=== PATIENT | female | born 2000 | race Caucasian/White ===

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

== ENCOUNTER 2022-08-01 18:35 | Emergency (ER) | payer OTHER ==
[~2022-08-01] VITALS: Ht 162.6 cm; Wt 86.4 kg
[2022-08-01 18:39] VITALS: BP 132/87
[2022-08-01] MEDS ORDERED: BUPR-50 PO (18:39)
[2022-08-01] MEDS ORDERED: ESCI-8 PO (18:39)
[2022-08-01] MEDS ORDERED: SODIUM CHLORIDE 0.9% 1,000 ML IV ONE (19:15)
[2022-08-01] MEDS ORDERED: ONDANSETRON HCL 4 MG/2 ML VIAL IVP ONE (19:15)
[2022-08-01] MEDS ORDERED: ACETAMINOPHEN/CODEINE 300-30 MG TABLET PO ONE (19:15)
[2022-08-01] MEDS ORDERED: KETOROLAC TROMETHAMINE 30 MG/ML VIAL IVP ONE (19:15)
[2022-08-01 19:36] LABS: BASOPHILS % (AUTO) 0.5 % (0.0-2.0); EOSINOPHILS % (AUTO) 1.4 % (1.0-6.0); HEMATOCRIT 40.6 % (36-46); HEMOGLOBIN 13.1 g/dL (12.0-16.0); LYMPHOCYTES # (AUTO) 1.9 K/uL (1.0-4.8); LYMPHOCYTES % (AUTO) 17.8 % (22.0-44.0); MEAN CORPUSCULAR HEMOGLOBIN 25.2 pg (26.0-34.0); MEAN CORPUSCULAR HGB CONC 32.3 G/dL (31.0-37.0); MEAN CORPUSCULAR VOLUME 78 fL (80-100); MONOCYTES # (AUTO) 0.6 K/uL (0.1-1.0); MONOCYTES % (AUTO) 5.9 % (2.0-9.0); NEUTROPHILS # (AUTO) 7.9 K/uL (1.8-7.7); NEUTROPHILS % (AUTO) 74.4 % (40.0-70.0); PLATELET COUNT (AUTO) 299 K/uL (150-450); RED CELL DISTRIBUTION WIDTH 15.7 % (11.5-14.5)
[2022-08-01 19:45] LABS: ANION GAP 9 mmol/L (8-16); CALCIUM, TOTAL 9.1 mg/dL (8.8-10.5); CARBON DIOXIDE 26 mmol/L (22-29); CHLORIDE 104 mmol/L (98-107); CREATININE 0.67 mg/dL (0.60-1.30); GLOMERULAR FILTR. RATE CALC > 60 mL/min (>60); GLUCOSE,RANDOM 100 mg/dL (70-110); SODIUM SERUM 139 mmol/L (136-145); UREA NITROGEN, BLOOD 11 mg/dL (7-18)
[2022-08-01 19:53] LABS: ALANINE AMINOTRANSFERASE 26 U/L (12-78); ALBUMIN 4.2 g/dL (3.4-5.0); ALKALINE PHOSPHATASE 142 U/L (46-116); ASPARTATE AMINOTRANSFERASE 21 U/L (15-37); BILIRUBIN,TOTAL 0.2 mg/dL (0.1-1.0); TOTAL PROTEIN, SERUM 7.9 g/dL (6.4-8.2)
[2022-08-01] MEDS ORDERED: IBUP-1554 PO (20:11)
[2022-08-01] MEDS ORDERED: ONDA-104 PO (20:11)
[2022-08-01] MEDS ORDERED: MECL-134 PO (20:11)
== END 2022-08-01 20:20 | disposition home or self-care (01) ==
LOC: EMS 18:41
DX: R42 Dizziness and giddiness (principal); R51.9 Headache, unspecified; G47.00 Insomnia, unspecified; F41.9 Anxiety disorder, unspecified; F32.A Depression, unspecified
CPT/HCPCS: 99284; 96374; 96361; 96375; 80053; 84703; 85025; 36415; J1885; J2405; J7030

== ENCOUNTER 2022-09-25 22:23 | Emergency (ER) | payer OTHER ==
[~2022-09-25] VITALS: Ht 157.5 cm; Wt 90.0 kg
[~2022-09-25 22:23] MED LIST: BUPR-50 PO; ESCI-8 PO; IBUP-1554 PO; MECL-134 PO; ONDA-104 PO
[2022-09-25 22:25] VITALS: TEMP 98.8
[2022-09-25 22:36] VITALS: BP 131/67; PULSE 92; RESP 17
== END 2022-09-25 23:26 | disposition home or self-care (01) ==
LOC: EMS 22:24
DX: S93.502A Unspecified sprain of left great toe, initial encounter (principal); F41.9 Anxiety disorder, unspecified; F32.A Depression, unspecified; F90.9 Attention-deficit hyperactivity disorder, unspecified type; W18.30XA Fall on same level, unspecified, initial encounter; Y93.89 Activity, other specified; Y92.89 Other specified places as the place of occurrence of the external cause; Y99.8 Other external cause status
CPT/HCPCS: 99283

== ENCOUNTER 2022-12-27 15:41 | Emergency (ER) | payer OTHER ==
[~2022-12-27] VITALS: Ht 160 cm; Wt 81.8 kg
[2022-12-27] MEDS ORDERED: ESCI20TA87 PO (15:47)
[2022-12-27] MEDS ORDERED: TRAZ-184 PO (15:47)
[2022-12-27 15:51] VITALS: TEMP 98.7
[2022-12-27 16:28] LABS: COVID AG,FIA SOURCE NASAL SWAB
[2022-12-27] MEDS ORDERED: SODIUM CHLORIDE 0.9% 1,000 ML IV ONE (16:45)
[2022-12-27] MEDS ORDERED: DIPHENOXYLATE/ATROP 2.5-0.025 MG TABLET PO ONE (16:45)
[2022-12-27] MEDS ORDERED: KETOROLAC TROMETHAMINE 30 MG/ML VIAL IVP ONE (16:45)
[2022-12-27] MEDS ORDERED: ONDANSETRON HCL 4 MG/2 ML VIAL IVP ONE (16:45)
[2022-12-27] MEDS ORDERED: ACETAMINOPHEN 500 MG TABLET PO ONE (16:45)
[2022-12-27 16:47] LABS: SARS-COV2 (COVID) ANTIGEN,FIA Negative (Negative)
[2022-12-27 16:48] LABS: INFLUENZA TYPE A NEGATIVE FOR TYPE A (NEGATIVE); INFLUENZA TYPE B NEGATIVE FOR TYPE B (NEGATIVE)
[2022-12-27 17:15] LABS: BASOPHILS % (AUTO) 0.4 % (0.0-2.0); EOSINOPHILS % (AUTO) 0.4 % (1.0-6.0); HEMATOCRIT 37.9 % (36-46); HEMOGLOBIN 12.4 g/dL (12.0-16.0); LYMPHOCYTES # (AUTO) 1.3 K/uL (1.0-4.8); LYMPHOCYTES % (AUTO) 13.8 % (22.0-44.0); MEAN CORPUSCULAR HEMOGLOBIN 25.9 pg (26.0-34.0); MEAN CORPUSCULAR HGB CONC 32.8 G/dL (31.0-37.0); MEAN CORPUSCULAR VOLUME 79 fL (80-100); MONOCYTES # (AUTO) 0.5 K/uL (0.1-1.0); MONOCYTES % (AUTO) 5.2 % (2.0-9.0); NEUTROPHILS # (AUTO) 7.6 K/uL (1.8-7.7); NEUTROPHILS % (AUTO) 80.2 % (40.0-70.0); PLATELET COUNT (AUTO) 261 K/uL (150-450); RED CELL DISTRIBUTION WIDTH 15.4 % (11.5-14.5); WHITE BLOOD COUNT (AUTO) 9.5 K/uL (4.5-11.0)
[2022-12-27 17:19] LABS: ANION GAP 11 mmol/L (8-16); CALCIUM, TOTAL 8.5 mg/dL (8.8-10.5); CARBON DIOXIDE 24 mmol/L (22-29); CHLORIDE 103 mmol/L (98-107); CREATININE 0.57 mg/dL (0.60-1.30); GLOMERULAR FILTR. RATE CALC > 60 mL/min (>60); GLUCOSE,RANDOM 110 mg/dL (70-110); POTASSIUM 3.4 mmol/L (3.5-5.1); SODIUM SERUM 138 mmol/L (136-145); UREA NITROGEN, BLOOD 11 mg/dL (7-18)
[2022-12-27 17:25] LABS: ALANINE AMINOTRANSFERASE 29 U/L (12-78); ALBUMIN 3.3 g/dL (3.4-5.0); ALKALINE PHOSPHATASE 120 U/L (46-116); ASPARTATE AMINOTRANSFERASE 21 U/L (15-37); BILIRUBIN,TOTAL 0.2 mg/dL (0.1-1.0); LIPASE 24 U/L (16-77); TOTAL PROTEIN, SERUM 6.9 g/dL (6.4-8.2)
[2022-12-27 18:35] VITALS: BP 122/60; PULSE 88; RESP 20
[2022-12-27] MEDS ORDERED: ONDA-104 PO (18:37)
[2022-12-27] MEDS ORDERED: DIPH-654 PO (18:37)
[2022-12-27] MEDS ORDERED: ACET-66 PO (18:37)
== END 2022-12-27 19:00 | disposition home or self-care (01) ==
LOC: EMS 15:43
DX: K52.9 Noninfective gastroenteritis and colitis, unspecified (principal); F41.9 Anxiety disorder, unspecified; F32.A Depression, unspecified; F90.9 Attention-deficit hyperactivity disorder, unspecified type; Z20.822 Contact with and (suspected) exposure to COVID-19
CPT/HCPCS: 99284; 96374; 96361; 96375; 87426; 80053; 83690; 84703; 85025; 87804; 36415; J1885; J2405; J7030

== ENCOUNTER 2023-03-19 12:47 | Emergency (ER) | payer OTHER ==
[~2023-03-19] VITALS: Ht 160 cm; Wt 84.1 kg
[~2023-03-19 12:47] MED LIST changes: +ACET-66 PO; -BUPR-50 PO; +DIPH-654 PO; -ESCI-8 PO; +ESCI20TA87 PO; -IBUP-1554 PO; -MECL-134 PO; +TRAZ-184 PO
[2023-03-19 13:05] VITALS: TEMP 98.1
[2023-03-19] MEDS ORDERED: ONDANSETRON HCL 4 MG/2 ML VIAL IM ONE (14:15)
[2023-03-19] MEDS ORDERED: KETOROLAC TROMETHAMINE 60 MG/2 ML VIAL IM ONE (14:15)
[2023-03-19] MEDS ORDERED: HYDROmorphone HCL 2 MG/ML SYRINGE IM ONE (14:15)
[2023-03-19] MEDS ORDERED: ACET-2080 PO (15:28)
[2023-03-19] MEDS ORDERED: ONDA-104 PO (15:28)
[2023-03-19] MEDS ORDERED: IBUP-1554 PO (15:28)
[2023-03-19 15:38] VITALS: BP 132/69; PULSE 90; RESP 18
== END 2023-03-19 15:46 | disposition home or self-care (01) ==
LOC: EMS 13:08
DX: G43.909 Migraine, unspecified, not intractable, without status migrainosus (principal); F41.9 Anxiety disorder, unspecified; F32.A Depression, unspecified; F90.9 Attention-deficit hyperactivity disorder, unspecified type
CPT/HCPCS: 99284; 81025; 96372; J1170; J1885; J2405

== ENCOUNTER 2023-07-14 08:42 | Emergency (ER) | payer OTHER ==
[~2023-07-14] VITALS: Ht 160 cm; Wt 80.0 kg
[~2023-07-14 08:42] MED LIST changes: +ACET-2080 PO; +DIPH-1130 PO; -DIPH-654 PO; +IBUP-1554 PO
[2023-07-14 09:06] LABS: GLUCOMETER DEV NAME(LOC) ER.6; GLUCOSE,POINT OF CARE 88 MG/DL (70-110)
[2023-07-14] MEDS: ONDANSETRON HCL 4 MG/2 ML VIAL IVP ONE (09:39)
[2023-07-14] MEDS: SODIUM CHLORIDE 0.9% 1,000 ML IV ONE (09:39)
[2023-07-14 09:47] LABS: BASOPHILS % (AUTO) 0.4 % (0.0-2.0); EOSINOPHILS % (AUTO) 2.2 % (1.0-6.0); HEMATOCRIT 42.1 % (36-46); LYMPHOCYTES % (AUTO) 19.9 % (22.0-44.0); MEAN CORPUSCULAR HEMOGLOBIN 27.2 pg (26.0-34.0); MEAN CORPUSCULAR HGB CONC 33.3 G/dL (31.0-37.0); MEAN CORPUSCULAR VOLUME 81 fL (80-100); MONOCYTES # (AUTO) 0.6 K/uL (0.1-1.0); MONOCYTES % (AUTO) 5.6 % (2.0-9.0); NEUTROPHILS # (AUTO) 7.3 K/uL (1.8-7.7); NEUTROPHILS % (AUTO) 71.9 % (40.0-70.0); PLATELET COUNT (AUTO) 255 K/uL (150-450); RED BLOOD CELL COUNT(AUTO) 5.16 MIL/uL (4.00-5.20); RED CELL DISTRIBUTION WIDTH 14.7 % (11.5-14.5); WHITE BLOOD COUNT (AUTO) 10.2 K/uL (4.5-11.0)
[2023-07-14 09:59] LABS: ANION GAP 10 mmol/L (8-16); CALCIUM, TOTAL 8.8 mg/dL (8.8-10.5); CARBON DIOXIDE 27 mmol/L (22-29); CHLORIDE 102 mmol/L (98-107); CREATININE 0.67 mg/dL (0.60-1.30); GLOMERULAR FILTR. RATE CALC > 60 mL/min (>60); GLUCOSE,RANDOM 84 mg/dL (70-110); POTASSIUM 3.7 mmol/L (3.5-5.1); SODIUM SERUM 139 mmol/L (136-145); UREA NITROGEN, BLOOD 9 mg/dL (7-18)
[2023-07-14 10:09] LABS: ALANINE AMINOTRANSFERASE 40 U/L (12-78); ALBUMIN 3.9 g/dL (3.4-5.0); ALKALINE PHOSPHATASE 110 U/L (46-116); ASPARTATE AMINOTRANSFERASE 31 U/L (15-37); BILIRUBIN,TOTAL 0.3 mg/dL (0.1-1.0); HCG,QUANTITATIVE < 1 mIU/mL (0-6); LIPASE 16 U/L (16-77); TOTAL PROTEIN, SERUM 7.9 g/dL (6.4-8.2)
[2023-07-14 10:18] LABS: APPEARANCE,URINE CLEAR (CLEAR); BILIRUBIN,URINE NEGATIVE (NEGATIVE); COLOR,URINE YELLOW (YELLOW); GLUCOSE, URINE (UA) NEGATIVE (NEGATIVE); LEUKOCYTE ESTERASE ,URINE NEGATIVE (NEGATIVE); NITRATE,URINE NEGATIVE (NEGATIVE); OCCULT BLOOD,URINE NEGATIVE (NEGATIVE); PROTEIN,URINE TRACE mg/dL (NEGATIVE); SPECIFIC GRAVITIY, URINE 1.026 (1.003-1.030); UROBILINOGEN,URINE <=1.0 mg/dL (<=1.0)
[2023-07-14 10:34] LABS: HCG,QUAL URINE NEGATIVE (NEGATIVE)
[2023-07-14 11:15] VITALS: TEMP 97.1
[2023-07-14] MEDS ORDERED: ONDA-104 PO (11:16)
[2023-07-14 11:55] VITALS: BP 122/83; PULSE 87; RESP 16
== END 2023-07-14 12:01 | disposition home or self-care (01) ==
LOC: EMS 08:42
DX: R10.9 Unspecified abdominal pain (principal); R11.2 Nausea with vomiting, unspecified; R19.7 Diarrhea, unspecified; D64.9 Anemia, unspecified; R73.03 Prediabetes; F41.9 Anxiety disorder, unspecified; F32.A Depression, unspecified; G43.909 Migraine, unspecified, not intractable, without status migrainosus; F90.9 Attention-deficit hyperactivity disorder, unspecified type
CPT/HCPCS: 99283; 96374; 96361; 80053; 81003; 82962; 83690; 84702; 84703; 85025; 36415; J2405; J7030

== ENCOUNTER 2024-12-02 22:34 | Emergency (ER) | payer OTHER ==
[~2024-12-02] VITALS: Ht 157.5 cm; Wt 79.5 kg
[2024-12-02 23:14] VITALS: TEMP 99.3
[2024-12-02 23:39] LABS: APPEARANCE,URINE CLEAR (CLEAR); GLUCOSE, URINE (UA) NEGATIVE (NEGATIVE); LEUKOCYTE ESTERASE ,URINE NEGATIVE (NEGATIVE); NITRATE,URINE NEGATIVE (NEGATIVE); OCCULT BLOOD,URINE SMALL (NEGATIVE); SPECIFIC GRAVITIY, URINE 1.016 (1.003-1.030)
[2024-12-02 23:40] LABS: PLATELET COUNT (AUTO) 262 K/uL (150-450); RED BLOOD CELL COUNT(AUTO) 4.94 MIL/uL (4.00-5.20); RED CELL DISTRIBUTION WIDTH 14.5 % (11.5-14.5); WHITE BLOOD COUNT (AUTO) 5.4 K/uL (4.5-11.0)
[2024-12-02 23:44] LABS: SQUAMOUS EPITHELIAL CELL,UR Few /LPF (None Seen)
[2024-12-02 23:48] LABS: CALCIUM, TOTAL 8.4 mg/dL (8.8-10.5); CREATININE 0.81 mg/dL (0.60-1.30); GLOMERULAR FILTR. RATE CALC > 60 mL/min (>60); GLUCOSE,RANDOM 104 mg/dL (70-110); SODIUM SERUM 136 mmol/L (136-145); UREA NITROGEN, BLOOD 9 mg/dL (7-18)
[2024-12-03 00:02] LABS: HCG,QUANTITATIVE < 1 mIU/mL (0-6)
[2024-12-03 01:05] VITALS: BP 131/78; PULSE 98; RESP 16; O2SAT 98
[2024-12-03] MEDS ORDERED: SUCR1TAB2 PO (01:27)
[2024-12-03] MEDS ORDERED: SODI133E17 PR (01:27)
[2024-12-03] MEDS ORDERED: PANT-31 PO (01:27)
[2024-12-03] MEDS: PB/HYOSCY/ATR/SCOP/LIDO/MAALOX 55 ML BOTTLE PO ONE (01:30)
== END 2024-12-03 01:56 | disposition home or self-care (01) ==
LOC: EMS 22:34
DX: K59.00 Constipation, unspecified (principal); K29.70 Gastritis, unspecified, without bleeding; R10.13 Epigastric pain; F41.9 Anxiety disorder, unspecified; N89.8 Other specified noninflammatory disorders of vagina; F32.A Depression, unspecified; G43.909 Migraine, unspecified, not intractable, without status migrainosus; Z79.899 Other long term (current) drug therapy
CPT/HCPCS: 80048; 81001; 83690; 84702; 85025; 99283